=== PATIENT | female | born 1985 | race Caucasian/White ===

== ENCOUNTER → 2016-08-09 | Day surgery (SDC) | payer OTHER ==
[~2016-08-09] MED LIST: DOXYCYCLINE HY100 MG PO; IBUPROFEN600 MG PO; MACROBID 100 M100 MG PO; PRENATAL ONE T1 EACH PO; SUBUTEX 8 MG TAB8 MG PO
[2016-08-09 09:14] LABS: HEMOGLOBIN 12.5 gm/dl (12.3-15.3); RED BLOOD COUNT 4.33 M/UL (4.00-5.10); WHITE BLOOD COUNT 12.2 K/UL (4.5-11.0)
== END | disposition home or self-care (01) ==
LOC: OR 08:12
PROVIDERS: Obstetrics & Gynecology
PROC: 10D17ZZ Extraction of Products of Conception, Retained, Via Natural or Artificial Opening (ICD-10-PCS; principal; 2016-08-09 09:30)
DX: O02.1 Missed abortion (principal); G43.909 Migraine, unspecified, not intractable, without status migrainosus; G89.29 Other chronic pain; F17.210 Nicotine dependence, cigarettes, uncomplicated; Z87.19 Personal history of other diseases of the digestive system; Z90.49 Acquired absence of other specified parts of digestive tract; Z87.440 Personal history of urinary (tract) infections
CPT/HCPCS: 36415; 81001; 85025; J1885; J2250; J2795; J7120

== ENCOUNTER 2021-03-03 18:33 | Emergency (ER) | payer OTHER ==
[~2021-03-03 18:33] MED LIST changes: +ASPIRIN CHEWABL81 MG PO; +KEPPRA500 MG PO; +NITROSTAT0.4 MG SL
[2021-03-03] MEDS ORDERED: GOLYTELY 40004000 ML PO (19:38)
== END 2021-03-03 19:45 | disposition home or self-care (01) ==
LOC: ER1 18:33
DX: K59.00 Constipation, unspecified (principal)
CPT/HCPCS: 99283

== ENCOUNTER 2021-12-23 04:58 | Emergency (ER) | payer OTHER ==
[~2021-12-23 04:58] MED LIST changes: +GOLYTELY 40004000 ML PO
[2021-12-23 06:05] LABS: HEMOGLOBIN 14.3 gm/dl (12.3-15.3); RED BLOOD COUNT 4.6 M/UL (4.00-5.10); WHITE BLOOD COUNT 14.7 K/UL (4.5-11.0)
[2021-12-23 06:20] LABS: BUN/CREATININE RATIO 14 (0-10)
[2021-12-25 23:11] LABS: CHLAMYDIA TRACHOMATIS, NAA Negative (Negative); NEISSERIA GONORRHOEAE, NAA Negative (Negative)
== END 2021-12-23 10:15 | disposition home or self-care (01) ==
LOC: ER1 04:58
PROVIDERS: Nurse Practitioner; Physician Assistant
DX: N83.202 Unspecified ovarian cyst, left side (principal); I10 Essential (primary) hypertension; F17.210 Nicotine dependence, cigarettes, uncomplicated; Z20.2 Contact with and (suspected) exposure to infections with a predominantly sexual mode of transmission
CPT/HCPCS: 80053; 81001; 84703; 85025; 85652; 86140; 87210; 96374; 96375; 99284; J0696; J1885; Q9967